=== PATIENT | female | born 1960 | race Caucasian/White ===

== ENCOUNTER 2022-02-19 17:51 | Emergency (ER) | payer OTHER, SELFPAY ==
[2022-02-19] VITALS (14 sets, daily range): BP systolic 103–156; BP diastolic 59–85; PULSE 59–76; RESP 10–16; TEMP 36.2; O2SAT 94–99
--- NOTE | 2022-02-19 18:26 | XRR_ITS ---
PROCEDURE INFORMATION: Exam: XR Right Forearm Exam date and time: 02/19/2022 6:36 PM Age: 61 years old Clinical indication: Injury or trauma; Fall; Blunt trauma (contusions or hematomas); Arm, lower; Right TECHNIQUE: Imaging protocol: Radiologic exam of the Right forearm. Views: 2 views. COMPARISON: No relevant prior studies available. FINDINGS: Bones/joints: There is a comminuted, impacted and dorsally angulated fracture of the distal right radial metaphysis extending into the radiocarpal joint. No fracture of the proximal forearm. No acute fracture is identified involving the carpal bones or ulna. Soft tissues: There is abundant soft tissue edema in the distal forearm. XR/XR forearm RT 2V [id number] IMPRESSION: There is a comminuted, impacted and dorsally angulated fracture of the distal right radial metaphysis extending into the radiocarpal joint.
--- NOTE | 2022-02-19 18:26 | XRR_ITS ---
PROCEDURE INFORMATION: Exam: XR Right Wrist Exam date and time: 02/19/2022 6:36 PM Age: 61 years old Clinical indication: Injury or trauma; Fall; Blunt trauma (contusions or hematomas); Wrist; Right TECHNIQUE: Imaging protocol: Radiologic exam of the Right wrist. Views: 3 or more views. COMPARISON: No relevant prior studies available. FINDINGS: Bones/joints: There is a comminuted and impacted dorsally angulated fracture of the distal right radial metaphysis with concern for nondisplaced fracture line extending to the articular surface of the radius at the radiocarpal joint. No dislocation. 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 There is mild widening of the scapholunate distance measuring 4 mm concerning for underlying scapholunate ligament tear. No additional acute fracture. Soft tissues: There is abundant soft tissue edema. XR/XR wrist RT min 3V* [id number] IMPRESSION: 1. There is a comminuted and impacted dorsally angulated fracture of the distal right radial metaphysis with concern for nondisplaced fracture line extending to the articular surface of the radius at the radiocarpal joint. 2. 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 3. There is mild widening of the scapholunate distance measuring 4 mm concerning for underlying scapholunate ligament tear.
--- NOTE | 2022-02-19 18:36 | ED_ITS ---
Documented by User: [email or web address] Easton 02/20/22 02:51 HPI - Extremity Problem General: Chief complaint: Extremity Injury, Upper Stated complaint: arm injury Time Seen by Provider: 02/19/22 18:32 History of Present Illness: Patient is a 61-year-old female comes to the ED with right wrist injury. Patient says injury occurred just prior to arrival. Patient was carrying some stuff and tripped and fell backwards. She tried to catch her self with right arm and when she landed on right arm she felt a snap and had pain in right wrist. Obvious visible deformity and forearm noted. Patient took 800 mg of ibuprofen before coming to the ED. She rates her current pain a 5 out of 10. Denies any other injuries. Associated symptoms: Deny chest pain, fever(s) or rash Review of Systems Const: Denies: fever(s), chills or fatigue Eyes: Denies: change in vision or eye discomfort ENMT: Denies: throat pain, odynophagia, nasal discharge or nasal congestion Card: Denies: chest pain, palpitations, edema, swelling of feet/ankles, dyspnea on exertion or orthopnea Resp: Denies: dyspnea, productive cough or non-productive cough GI: Denies: abdominal pain, nausea, vomiting, diarrhea, constipation or hemato chezia : Denies: flank pain, dysuria or hematuria Musc: Reports: extremity pain (Right wrist pain), extremity swelling (Right wrist swelling) and deformity (Right wrist deformity); Denies: neck pain or back pain Skin/Breast: Denies: rash or new lesions Neuro: Denies: headache(s), numbness in extremities or weakness in extremities [facility] ED PFSH: Medical History No pertinent family history Surgical History No pertinent past surgical history Physical Exam Const: COMMON NORMALS: patient oriented x3 and alert GENERAL APPEARANCE: cooperative HENMT: COMMON NORMALS: normocephalic HEAD & SCALP: normocephalic MOUTH: Normal oral and palatal mucosa present THROAT: posterior oropharynx normal and uvula midline Neck/C-Spine: COMMON NORMALS: supple GENERAL: Yes normal visual inspection Resp: COMMON NORMALS: normal respiratory effort, No retractions, No use of accessory muscles and clear to auscultation bilaterally AUSCULTATION: clear to auscultation bilaterally Cardio: COMMON NORMALS: regular rate, regular rhythm, S1 normal heart sound present, S2 normal heart sound present, No gallops present (Cardio), No clicks present (Cardio), No murmurs present (Cardio) and Peripheral pulses 2+ throughout RATE: regular rate RHYTHM: regular rhythm HEART SOUNDS: S1 normal heart sound present and S2 normal heart sound present PERIPHERAL PULSES: Peripheral pulses 2+ throughout GI: COMMON NORMALS: Normal to inspection, nondistended, normoactive bowel sounds present, Soft to palpation, non-tender and no masses PALPATION: Yes Soft to palpation : COMMON NORMALS: Yes no CVA tenderness BLADDER/KIDNEY EXAM: Yes no CVA tenderness Back/Pelvis: COMMON NORMALS: no CVA tenderness Extremity: NARRATIVE EXTREMITY EXAM: Right wrist?obvious dinner fork deformity noted. Swelling and tenderness of wrist. Limited range of motion due to pain. Neurovascular intact. GENERAL: Yes normal exam except as noted Neuro: COMMON NORMALS: patient oriented x3 and moves all extremities SENSORIUM/ORIENTATION: Yes alert Skin: GENERAL SKIN EXAM: dry skin Course Vital Signs: Vital signs: Vital Signs Temperature 97.2 F L 02/19/22 18:21 Pulse Rate 71 02/19/22 21:20 Respiratory Rate 16 02/19/22 21:20 Blood Pressure 103/59 02/19/22 21:20 Pulse Oximetry 96 02/19/22 21:20 MDM - Extremity (Nontraumatic) Lab Data Radiology Impressions Forearm X-Ray 02/19/22 18:26 IMPRESSION: There is a comminuted, impacted and dorsally angulated fracture of the distal right radial metaphysis extending into the radiocarpal joint. Wrist X-Ray 02/19/22 20:56 IMPRESSION: There is improved alignment of the comminuted fracture of the distal right radius with only mild impaction, dorsal angulation and dorsal displacement of the distal fracture fragments compared to the prior exam. Discharge Plan Discharge Patient Disposition: Home Clinical Impression: Fracture of wrist Qualifiers: Encounter type: initial encounter Fracture type: closed Laterality: right Qualified Code(s): S62.101A - Fracture of unspecified carpal bone, right wrist, initial encounter for closed fracture Condition: Stable Discharge Orders: Discharge ED (Routine); Ordered 02/19/22 Ordered By: Frank Parisi Discharge Diet: Regular Discharge Activity: Limit activity as instructed Patient Instructions: Wrist Fracture in Adults (ED), Procedural Sedation (ED), Opioid Safety Activity Restrictions/Additional Instructions: Follow-up with medical provider as directed. You will need to have a wrist fracture follow-up with a local orthopedic doctor. I recommend contacting your PCP to get a referral to an orthopedic doctor for further management of her wrist fracture. Keep splint on and dry and limit activity with right arm until cleared by orthopedic doctor. Take medications as prescribed. Return to the ER or your medical provider if condition worsens. Please read and understand discharge instructions. Thank you for choosing [facility] for your healthcare needs today. Please realize this is an emergency room and that we are providing you with a medical screening exam and this may not be complete and all inclusive of all the testing and or work up that you may need to determine your ailment or severity of your illness. It is very important that you follow up as instructed or that you return to the Emergency Department should you have concerns or if your condition changes or worsens in any way. Coding Level of Care Code ED Extrusion Die Template Maker for Chg Fwd Exam Comprehensive Documented by User: David Laurent DO 02/20/22 02:09 HPI - Extremity Problem General: Chief complaint: Extremity Injury, Upper Stated complaint: arm injury Time Seen by Provider: 02/19/22 18:32 [facility] ED PFSH: Medical History No pertinent family history Surgical History No pertinent past surgical history Procedures Orthopedic Fracture Reduction Fracture #1: Time Out Performed: Yes Side: right Fracture Reduction Location: radius Analgesia: procedural sedation Technique: direct manipulation and traction/counter-traction Post Reduction X-rays Demonstrate: acceptable reduction Post-reduction neuro exam: intact Post-reduction vascular exam: intact Splint Applied: Yes Patient Tolerated Procedure: well and no complications Procedural Sedation Indication: fracture/dislocation reduction ASA Class: I Preparation: camp dining room attendant applied, pulse oximeter, supplemental O2 applied, suction/airway equipment at bedside and IV secured Midazolam: IV Midazolam dose (mg): 1 IV Etomidate dose (mg): 15 Patient Tolerated Procedure: well and no complications Complications: none Course Vital Signs: Vital signs: Vital Signs Temperature 97.2 F L 02/19/22 18:21 Pulse Rate 71 02/19/22 21:20 Respiratory Rate 16 02/19/22 21:20 Blood Pressure 103/59 02/19/22 21:20 Pulse Oximetry 96 02/19/22 21:20 MDM - Extremity (Nontraumatic) Medical Decision Making This patient was originally seen by Mr. Isak PA-C.? I agree with his history, evaluation, and treatment. He check this patient out to me for procedural sedation and fracture reduction. Proceeded without complication. Fracture reduction was semisuccessful, and that alignment was improved, but anatomic alignment was not achieved. Patient and her friend were counseled that open reduction internal fixation and orthopedics would likely be needed as an outpatient. They are from [facility], and will travel back tomorrow. They will contact orthopedics there and follow-up as an outpatient. Lab Data Radiology Impressions Forearm X-Ray 02/19/22 18:26 IMPRESSION: There is a comminuted, impacted and dorsally angulated fracture of the distal right radial metaphysis extending into the radiocarpal joint. Wrist X-Ray 02/19/22 20:56 IMPRESSION: There is improved alignment of the comminuted fracture of the distal right radius with only mild impaction, dorsal angulation and dorsal displacement of the distal fracture fragments compared to the prior exam. Discharge Plan Discharge Patient Disposition: Home Clinical Impression: Fracture of wrist Qualifiers: Encounter type: initial encounter Fracture type: closed Laterality: right Qualified Code(s): S62.101A - Fracture of unspecified carpal bone, right wrist, initial encounter for closed fracture Condition: Stable Discharge Orders: Discharge ED (Routine); Ordered 02/19/22 Ordered By: Frank Parisi Discharge Diet: Regular Discharge Activity: Limit activity as instructed Patient Instructions: Wrist Fracture in Adults (ED), Procedural Sedation (ED), Opioid Safety Activity Restrictions/Additional Instructions: Follow-up with medical provider as directed. You will need to have a wrist f racture follow-up with a local orthopedic doctor. I recommend contacting your PCP to get a referral to an orthopedic doctor for further management of her wrist fracture. Keep splint on and dry and limit activity with right arm until cleared by orthopedic doctor. Take medications as prescribed. Return to the ER or your medical provider if condition worsens. Please read and understand discharge instructions. Thank you for choosing [facility] for your healthcare needs today. Please realize this is an emergency room and that we are providing you with a medical screening exam and this may not be complete and all inclusive of all the testing and or work up that you may need to determine your ailment or severity of your illness. It is very important that you follow up as instructed or that you return to the Emergency Department should you have concerns or if your condition changes or worsens in any way. Coding Level of Care Code ED Extrusion Die Template Maker for Nubia Sanz Exam Comprehensive
[2022-02-19] MEDS: ondansetron 2 mg/ML SDV 2 mL 4 MG IM (18:48)
[2022-02-19] MEDS: morphine 4 mg/mL SDV 1 mL IM (18:48)
[2022-02-19] MEDS: morphine 4 mg/mL SDV 1 mL IVP ×2 (19:43→21:06)
--- NOTE | 2022-02-19 19:48 | XRR_ITS ---
PROCEDURE INFORMATION: Exam: XR Right Wrist Exam date and time: 02/19/2022 8:20 PM Age: 61 years old Clinical indication: Injury or trauma; Fall; Fracture, traumatic injury; Displaced; Radius; Right; Distal end; Patient HX: Post reduction R wrist FX; Additional info: Post reduc TECHNIQUE: Imaging protocol: Radiologic exam of the Right wrist. Views: 3 or more views. COMPARISON: CR ( EX, ) 02/19/2022 6:36 PM FINDINGS: Tubes, catheters and devices: There is a splint. Bones/joints: There is improved alignment of the fracture of the distal right radius with less impaction and dorsal angulation compared to the prior exam. 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 No dislocation. Soft tissues: Normal. XR/XR wrist RT min 3V* [id number] IMPRESSION: 1. There is improved alignment of the fracture of the distal right radius with less impaction and dorsal angulation compared to the prior exam. 2. 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
[2022-02-19] MEDS: midazolam 1 mg/mL INJ 2 mL IVP (20:17)
[2022-02-19] MEDS: ondansetron 2 mg/ML SDV 2 mL 4 MG IVP (20:17)
--- NOTE | 2022-02-19 20:39 | PC.NURSE ---
conscious sedation preformed by Dr Laurent, procedure started at 2002 1 of versed given and 2003 5mg of etom given reduction was attempted by Dr Laurent and x rays showed need for further manipulation. 2026 5 mg of etom given and pt was reduced as best as Dr Laurent ability, sugar tong splint applied. cms intact post splinting pt vss remained stable throughout sedation. see VSS in scanned flowsheets.
--- NOTE | 2022-02-19 20:56 | XRR_ITS ---
PROCEDURE INFORMATION: Exam: XR Right Wrist Exam date and time: 02/19/2022 8:59 PM Age: 61 years old Clinical indication: Pain; Right; Patient HX: PT says she felt a pop in her wrist; Additional info: Post reduction TECHNIQUE: Imaging protocol: Radiologic exam of the Right wrist. Views: 1 or 2 views. COMPARISON: CR (UP EXM, ) 02/19/2022 8:20 PM FINDINGS: Tubes, catheters and devices: There is a splint. Bones/joints: There is improved alignment of the comminuted fracture of the distal right radius with only mild impaction, dorsal angulation and dorsal displacement of the distal fracture fragments compared to the prior exam. Sclerosis of the lunate concerning for osteonecrosis is again noted. Soft tissues: There is soft tissue edema. XR/XR wrist RT 2V [id number] IMPRESSION: There is improved alignment of the comminuted fracture of the distal right radius with only mild impaction, dorsal angulation and dorsal displacement of the distal fracture fragments compared to the prior exam.
[2022-02-19] MEDS: oxyCODONE-APAP 5-325 mg Tablet 3 TAB PO (21:06)
== END 2022-02-19 21:30 | disposition home or self-care (01) ==
PROVIDERS: Emergency Provider Physician Assistant
DX: S52.591A Other fractures of lower end of right radius, initial encounter for closed fracture (principal); W01.0XXA Fall on same level from slipping, tripping and stumbling without subsequent striking against object, initial encounter
CPT/HCPCS: 25605; 73090; 73100; 73110; 96374; 96375; 96376; 99285; J2250; J2270; J2405; J3490